=== PATIENT | female | born 1965 | race Caucasian/White ===

== ENCOUNTER 2024-02-27 08:32 | Day surgery (SDC) | payer OTHER ==
[2024-02-27] MEDS ORDERED: Sodium Chloride 0.9(Preservative Free) 10 ML IJ ONE (08:33)
[2024-02-27] MEDS ORDERED: Depo-Medrol 40 MG/ML IM ONE (08:33)
[2024-02-27] MEDS ORDERED: Versed 2 MG/2 ML Injection ONE (10:18)
[2024-02-27] MEDS ORDERED: DIPRIVAN 200 MG/20 ML IV ONE (10:23)
--- NOTE | 2024-02-27 11:56 | XRAY ---
Indication: Caudal ROSELIA. Intraoperative fluoroscopy provided for 17 seconds. 2 digital spot image submitted for interpretation demonstrates caudal needle tip projecting mid sacrum. Small amount of contrast injected for needle tip placement. Correlate with intraoperative findings/report.
--- NOTE | 2024-02-27 12:11 | XRAY ---
17 seconds of fluoroscopy was used in surgery for a caudal ROSELIA.
== END 2024-02-27 10:59 | disposition home or self-care (01) ==
LOC: SDC-PAIN 08:32
PROVIDERS: ATTEND Psychiatry & Neurology Pain Medicine
DX: M54.16 Radiculopathy, lumbar region (principal); R73.03 Prediabetes
CPT/HCPCS: 62323; 72220; 77003; 82947; J2250; J2704; Q9966

== ENCOUNTER 2024-08-20 08:23 | Day surgery (SDC) | payer OTHER ==
[2024-08-20] MEDS ORDERED: Sodium Chloride 0.9(Preservative Free) 10 ML IJ ONE (08:24)
[2024-08-20] MEDS ORDERED: Depo-Medrol 40 MG/ML IM ONE (08:24)
[2024-08-20] MEDS ORDERED: propofoL IV ONE (10:34)
--- NOTE | 2024-08-20 12:17 | XRAY ---
Indication: Caudal ROSELIA. Intraoperative fluoroscopy provided for 22 seconds.4 digital spot image submitted for interpretation demonstrates caudal needle tip projecting mid sacrum. Small amount of contrast injected for needle tip placement. Correlate with intraoperative findings/report.
--- NOTE | 2024-08-20 12:19 | XRAY ---
22 seconds of fluoroscopy used in surgery for a caudal ROSELIA.
== END 2024-08-20 11:10 | disposition home or self-care (01) ==
LOC: SDC-PAIN 08:23
PROVIDERS: ATTEND Psychiatry & Neurology Pain Medicine
DX: M54.16 Radiculopathy, lumbar region (principal); R73.03 Prediabetes
CPT/HCPCS: 62323; 72220; 82947; J2704; Q9966

== ENCOUNTER 2025-03-26 08:48 | Day surgery (SDC) | payer OTHER ==
[2025-03-26] MEDS ORDERED: Sodium Chloride 0.9(Preservative Free) 10 ML IJ ONE (08:49)
[2025-03-26] MEDS ORDERED: methylPREDNISolone acetate IM ONE (08:49)
[2025-03-26] MEDS ORDERED: propofoL IV ONE (10:49)
[2025-03-26] MEDS ORDERED: Lactated Ringers 1,000 ML IV ONE (11:04)
--- NOTE | 2025-03-26 12:07 | XRAY ---
Indication: Caudal ROSELIA. Intraoperative fluoroscopy provided for 16 seconds. 2 digital spot images submitted for interpretation demonstrates caudal needle tip projecting mid sacrum. Small amount of contrast injected for needle tip placement. Correlate with intraoperative findings/report.
--- NOTE | 2025-03-26 17:00 | XRAY ---
16 seconds of fluoroscopy was used in surgery for a caudal ROSELIA.
== END 2025-03-26 11:15 | disposition home or self-care (01) ==
LOC: SDC-PAIN 08:48
PROVIDERS: ATTEND Psychiatry & Neurology Pain Medicine
DX: M54.16 Radiculopathy, lumbar region (principal); R73.03 Prediabetes